=== PATIENT | male | born 1995 | race Two or more races ===

== ENCOUNTER 2021-10-17 19:12 | Emergency (ER) | payer SELFPAY ==
[~2021-10-17] VITALS: Ht 162.6 cm; Wt 63.3 kg
[2021-10-17] MEDS ORDERED: diphenhydrAMINE 50 MG/ML VIAL IVP ONE (19:45)
[2021-10-17] MEDS ORDERED: FAMOTIDINE 20 MG/2 ML VIAL IVP ONE (20:00)
[2021-10-17] MEDS ORDERED: DEXAMETHASONE SOD PHOS 20 MG/5 ML VIAL. IV ONE (20:00)
[2021-10-17] MEDS ORDERED: DIPH25TA64 PO (20:56)
[2021-10-17] MEDS ORDERED: PRED50TA PO (20:56)
[2021-10-17] MEDS ORDERED: FAMO20TA5 PO (20:56)
--- NOTE | 2021-10-17 20:57 | PHYS DOC ---
Past Medical History Past Surgical History: No Surgical History Smoking Status: Never Smoker Alcohol Use: Occasionally General Adult EDM: Chief Complaint: ALLERGIC REACTION HPI: HPI: Patient is a 26 year old male who presents to the ED today complaining of a pruritic rash that began yesterday. Patient denies any known cause for the rash. Denies any difficulty breathing. Denies any throat or tongue swelling. RN interpreted for [place] Review of Systems: Review of Systems: Constitutional: Denies fever or chills. [] Eyes: Denies change in visual acuity. [] HENT: Denies nasal congestion or sore throat. [] Respiratory: Denies cough or shortness of breath. [] Cardiovascular: Denies chest pain or edema. [] GI: Denies abdominal pain, nausea, vomiting, bloody stools or diarrhea. [] : Denies dysuria. [] Musculoskeletal: Denies back pain or joint pain. [] Integument: Reports rash Neurologic: Denies headache, focal weakness or sensory changes. [] Psychiatric: Denies depression or anxiety. [] Heart Score: C/O Chest Pain: N/A Risk Factors: Risk Factors: DM, Current or recent (<one month) smoker, HTN, HLP, family history of CAD, obesity. Risk Scores: Score 0 - 3: 2.5% MACE over next 6 weeks - Discharge Home Score 4 - 6: 20.3% MACE over next 6 weeks - Admit for Clinical Observation Score 7 - 10: 72.7% MACE over next 6 weeks - Early Invasive Strategies Current Medications: Current Medications Medications (Trade) Dose Ordered Sig/Dipak Start Time Stop Time Status Last Admin Dose Admin Dexamethasone Sodium Phosphate (Decadron) 10 mg 1X ONCE 10/17/21 20:00 10/17/21 20:01 DC 10/17/21 19:54 10 MG Diphenhydramine HCl (Benadryl) 25 mg 1X ONCE 10/17/21 19:45 10/17/21 19:46 DC 10/17/21 19:53 25 MG Famotidine (Pepcid Vial) 20 mg 1X ONCE 10/17/21 20:00 10/17/21 20:01 DC 10/17/21 19:53 20 MG Allergies: Allergies: Allergies Coded Allergies Type Severity Reaction Last Updated Verified No Known Drug Allergies 10/17/21 No Physical Exam: PE: Constitutional: Well developed, well nourished, no acute distress, non-toxic appearance. [] HENT: Airway is open. Normocephalic, atraumatic, bilateral external ears normal, oropharynx moist, no oral exudates, nose normal. [] Eyes: PERRLA, EOMI, conjunctiva normal, no discharge. [] Neck: Normal range of motion, no tenderness, supple, no stridor. [] Cardiovascular:Heart rate regular rhythm, no murmur [] Lungs & Thorax: Bilateral breath sounds clear to auscultation [] Abdomen: Bowel sounds normal, soft, no tenderness, no masses, no pulsatile masses. [] Skin: Mild amount of erythematous papular rash on patient's bilateral upper e xtremities, abdomen, small amount on the back and lower extremities, trace amount on the face. Back: No tenderness, no CVA tenderness. [] Extremities: No tenderness, no cyanosis, no clubbing, ROM intact, no edema. [] Neurologic: Alert and oriented X 3, normal motor function, normal sensory function, no focal deficits noted. [] Psychologic: Affect normal, judgement normal, mood normal. [] Current Patient Data: Vital Signs: Vital Signs Date Time Temp Pulse Resp B/P (MAP) Pulse Ox O2 Delivery O2 Flow Rate FiO2 10/17/21 19:25 99.3 79 20 128/76 (93) 98 Room Air 99.3 EKG: EKG: [] Radiology/Procedures: Radiology/Procedures: [] Course & Med Decision Making: Course & Med Decision Making Pertinent Labs and Imaging studies reviewed. (See chart for details) This a 26-year-old male patient presented to the ED today with a pruritic rash that began yesterday, no known source for the rash. Airway is open. Patient was given Decadron, prednisone and Benadryl in the ED. Rash appears less than when he came to the ED. Discharged on prednisone, Benadryl and Pepcid. Provided return precautions. Patient is [place]-speaking and RN provided interpretation Chriss Disclaimer: Chriss Disclaimer: This electronic medical record was generated, in whole or in part, using a voice recognition dictation system. Departure Departure Impression: Primary Impression: Allergic reaction Qualified Codes: T78.40XA - Allergy, unspecified, initial encounter Disposition: HOME / SELF CARE / HOMELESS Condition: STABLE Referrals: NO PCP (PCP) follow up with your doctor in one week Patient Instructions: Rash Additional Instructions: You were evaluated in the emergency room for rash, please take the prescribed medications as ordered. Follow-up with your doctor in 1 to 2 weeks. Scripts Famotidine (FAMOTIDINE) 20 Mg Tablet 20 MG PO DAILY, #7 TAB Prov: JOSÉ MIGUEL FLOREZ APRN 10/17/21 Diphenhydramine Hcl (BENADRYL ALLERGY) 25 Mg Tablet 1 TAB PO Q6HRS, #60 TAB 0 Refills Prov: JOSÉ MIGUEL FLOREZ APRN 10/17/21 Prednisone (PREDNISONE) 50 Mg Tablet 1 TAB PO DAILY, #5 TAB Prov: JOSÉ MIGUEL FLOREZ APRN 10/17/21 JOSÉ MIGUEL FLOREZ APRN Oct 17, 2021 20:57
[2021-10-17 21:32] VITALS: BP 132/77
== END 2021-10-17 21:40 | disposition home or self-care (01) ==
LOC: ER 19:12
DX: T78.40XA Allergy, unspecified, initial encounter (principal); X58.XXXA Exposure to other specified factors, initial encounter
CPT/HCPCS: 96374; 96375; 99285; J1100; J1200; J3490